=== PATIENT | female | born 1980 | race Caucasian/White ===

== ENCOUNTER 2017-12-05 08:47 | Day surgery (SDC) | payer OTHER ==
[~2017-12-05 08:47] MED LIST: Buffered Lidocaine 0.9% SYRIN* 5 ML/SYR SYRINGE INTRADERM ONE; Buffered Lidocaine 0.9% SYRIN* 5 ML/SYR SYRINGE ONE; Metoclopramide TAB* 10 MG ONE; Metoclopramide TAB* 10 MG PO ONE
[2017-12-05] MEDS ORDERED: Scopolamine 1.5 mg* PATCH ONE (09:57)
[2017-12-05] MEDS ORDERED: Ondansetron INJ* 2 MG/ML VIAL ONE (10:07)
[2017-12-05] MEDS ORDERED: Lidocaine 2% PF * 5 ML VIAL ONE (10:07)
[2017-12-05] MEDS ORDERED: Succinylcholine* 20 MG/ML 10 ML VIAL ONE (10:07)
[2017-12-05] MEDS ORDERED: Dexamethasone IV* 4 MG/ML 1 ML (4 MG) ONE (10:07)
[2017-12-05] MEDS ORDERED: fentaNYL* 50 MCG/ML 2 ML VIAL (100 MCG VIAL) ONE (10:07)
[2017-12-05] MEDS ORDERED: Propofol* 10 MG/ML 20 ML BTL IV PUSH ONE (10:07)
[2017-12-05] MEDS ORDERED: Bupivacaine 0.5% SDV PF* 10-30ML VIAL ONE (10:14)
[2017-12-05] MEDS ORDERED: Naloxone* 0.4 MG/ML 1 ML VIAL IV PRN (10:44)
[2017-12-05] MEDS ORDERED: DiMENhydriNATE IV* 50 MG/ML VIAL IV PUSH PRN (10:44)
[2017-12-05] MEDS ORDERED: Ketorolac INJ* 30 MG/ML 1 ML VIAL IV PRN (10:44)
[2017-12-05] MEDS ORDERED: oxyCODONE/Acetamin 5/325 MG* TAB PO PRN (10:44)
[2017-12-05] MEDS ORDERED: fentaNYL* 50 MCG/ML 2 ML VIAL (100 MCG VIAL) IV PRN (10:44)
[2017-12-05] MEDS ORDERED: EPHEDrine (Pressors)* 50 MG/ML VIAL ONE (10:53)
[2017-12-05] MEDS ORDERED: ceFOXitin(*) 2 GM in NS 0.9% 100 ML* 100 ML IVPB ONE (11:00)
[2017-12-05] MEDS ORDERED: Ketorolac INJ* 30 MG/ML 1 ML VIAL ONE (12:02)
[2017-12-05] MEDS ORDERED: DiMENhydriNATE IV* 50 MG/ML VIAL ONE (12:02)
[2017-12-05 13:08] VITALS: BP 128/81
--- NOTE | 2017-12-12 22:24 | OP ---
DATE OF OPERATION: 12/05/17 - SDS DATE OF : 80 SURGEON: Ralph Ruelas MD ANESTHESIA: General anesthetic with endotracheal intubation. PRE-OP DIAGNOSIS: The patient desires permanent surgical sterilization via bilateral salpingectomy. POST-OP DIAGNOSIS: The patient desires permanent surgical sterilization via bilateral salpingectomy. OPERATIVE PROCEDURE: Bilateral laparoscopic salpingectomy. ESTIMATED BLOOD LOSS: None. IV FLUIDS: She received 15 cc of IV crystalloid fluid. SPECIMENS: Sent to pathology were bilateral fallopian tubes. URINE OUTPUT: Clear. FINDINGS: Laparoscopically revealed normal uterus, normal right tube and ovary with a normal left tube and the left ovary was adherent to the sigmoid colon, otherwise it appear within normal limits. The bladder, appendix, liver edge, and gallbladder were all within normal limits as well as the bowel. DESCRIPTION OF PROCEDURE: The patient was taken to the operating room where she was identified. She was placed on the operating table, where a general anesthetic with endotracheal intubation was obtained without difficulty. She was then placed in dorsal lithotomy position, prepped and draped in normal sterile fashion. Attention was then brought to the patient's perineum, where the bladder was catheterized with a Vazquez catheter and drained of clear urine. A weighted speculum was inserted into the patient's vagina. The cervix was identified and grasped with a single tooth tenaculum and through the cervix, a ClearView uterine manipulator was introduced. The balloon on the manipulator was insufflated with 4 cc of sterile water. The single-toothed tenaculum was removed as well as the speculum. Attention was then brought up to the patient's abdomen where a 1 cm infraumbilical skin incision was made with a knife and carried through to the underlying layer of fascia. The fascia was then grasped with Candice clamps, brought up to the incision and incised immediately and then entry into the abdomen was confirmed using a Brook clamp. The Candice clamps on the fascia were replaced with 0 Polysorb suture and through this incision, a 10 mm blunt trocar was introduced and attached to the sutures. was insufflated with 20 cc of air. The patient's abdomen was insufflated with CO2 gas. A 10 mm scope was introduced to umbilicus and revealed findings as noted above. At this point, two other trocars were introduced at the right and left upper quadrant of the patient's abdomen under direct visualization. I proceeded to then remove the filmy adhesions from the left ovary to the sigmoid to free up the fallopian tube and the ovary. I then proceeded with a salpingectomy using a LigaSure and a salpingectomy was done using cautery, blunt and sharp dissection. Once the fallopian tube was removed from the left adnexa, it was removed through the trocar and sent to pathology. Attention was then brought on to the patient's right adnexa where a salpingectomy again was performed using LigaSure device using blunt, sharp dissection as well as cautery. The fallopian tube once removed from the left adnexa was removed through the trocar and sent to pathology as well. A look at the operative site revealed complete hemostasis and at this point, all the instruments were removed from the patient' s abdomen. The CO2 gas was also removed from the patient's abdomen. The fascia and the umbilicus was closed using 0 Polysorb suture in a running fashion. Skin closure was done with a 4-0 Monocryl stitch subcuticularly. All the instruments were removed from the patient's vagina as well. The sponge, lap , and needle counts were correct x2. She was then transferred to the recovery room area in stable condition. [id number] #: [id number] [facility]ERRadha
== END 2017-12-05 13:40 | disposition home or self-care (01) ==
LOC: OR 08:47
PROVIDERS: ATTEND Obstetrics & Gynecology
DX: Z30.2 Encounter for sterilization (principal); J30.9 Allergic rhinitis, unspecified; N83.8 Other noninflammatory disorders of ovary, fallopian tube and broad ligament
CPT/HCPCS: 88302; A9270-GY; J0330; J0694; J1100; J1240; J1885; J2405; J2704; J3010